=== PATIENT | female | born 1960 | race Caucasian/White ===

== ENCOUNTER 2021-05-15 14:45 | Inpatient (IN) | payer OTHER, SELFPAY ==
[~2021-05-15] VITALS: Ht 167.6 cm; Wt 127.5 kg
[2021-05-15 14:48] VITALS: BP 135/80
--- NOTE | 2021-05-15 16:18 | NUR ---
REFINERY OPERATOR ASSISTANT BEDSIDE COLLECTING BLOODWORK
[2021-05-15 16:25] LABS: BASOPHILS # (AUTO) 0.2 K/uL (0.00-0.22); EOSINOPHILS # (AUTO) 0.1 K/uL (0-0.4); EOSINOPHILS % (AUTO) 0.8 % (0.0-4.0); HEMATOCRIT 22.6 % (36-48); HEMOGLOBIN 7.4 g/dL (12.0-16.0); LYMPHOCYTES # (AUTO) 0.9 K/uL (2.5-16.5); LYMPHOCYTES % (AUTO) 4.8 % (20.5-51.1); MEAN CORPUSCULAR HEMOGLOBIN 30 pg (27-31); MEAN CORPUSCULAR HGB CONC 33 g/dL (33-37); MEAN CORPUSCULAR VOLUME 90.8 fL (80-94); MONOCYTES % (AUTO) 10.7 % (1.7-9.3); NEUTROPHILS # (AUTO) 15.6 K/uL (1.8-7.7); NEUTROPHILS % (AUTO) 82.7 % (42.2-75.2); PLATELET COUNT (AUTO) 477 K/uL (140-450); RED BLOOD CELL COUNT(AUTO) 2.49 MIL/uL (4.20-5.40); RED CELL DISTRIBUTION WIDTH 15.2 % (11.6-13.7); WHITE BLOOD COUNT (AUTO) 18.8 K/uL (4.8-10.8)
[2021-05-15 17:14] LABS: ALBUMIN 1.7 g/dL (3.4-5.0); ANION GAP 14.5 (8-16); CARBON DIOXIDE 20.4 mmol/L (21-32); POTASSIUM 3.9 mmol/L (3.5-5.1); TOTAL BILIRUBIN 0.5 mg/dL (0.0-1.0)
--- NOTE | 2021-05-15 17:42 | NUR ---
Patient appears to be resting comfortably in bed. Vital Signs within normal limits. Respirations even and unlabored.
--- NOTE | 2021-05-15 17:44 | NUR ---
60 YO FEMALE ARRIVED VIA AMBULANCE FROM [facility]. PT WAS BEING TREATED FOR PNEUMONIA BUT C/O SHORTNESS OF BREATH TIMES 3 HOURS. PATIENT HAS NKA. PMH CHF, COPD, AFIB.
[2021-05-15 17:52] LABS: BILIRUBIN,URINE NEGATIVE (NEGATIVE); BLOOD, URINE 3+ (NEGATIVE); COLOR,URINE YELLOW (YELLOW); LEUKOCYTE ESTERASE ,URINE TRACE (NEGATIVE); NITRITE, URINE NEGATIVE (NEGATIVE); UGLUCOSE NEGATIVE (NEGATIVE)
[2021-05-15 18:22] LABS: RBC,URINE TOO NUMEROUS TO COUN /HPF (0-5); WBC,URINE 0-5 /HPF (0-5)
[2021-05-15 18:23] LABS: APPEARANCE,URINE HAZY (CLEAR)
--- NOTE | 2021-05-15 19:01 | NUR ---
RT BEDSIDE COLLECTING ABG BLOOD WORK
--- NOTE | 2021-05-15 19:35 | NUR ---
Pt report given to ESTELLA GARCÍA. Transfer of care at this time.
--- NOTE | 2021-05-15 20:08 | NUR ---
pt states she was really dehydrated and hungry. pt was given some juices and milk (no food available in er fridge).
--- NOTE | 2021-05-15 21:39 | NUR ---
CARLITOS LOPEZ OBTAINED ULTRASOUND GUIDED 20G IV IN R AC.
--- NOTE | 2021-05-15 21:45 | NUR ---
PT LEFT FOR CT
[2021-05-15] MEDS ORDERED: hePARIN / DEXT 5% PREMIX 250 ML IV ONE (23:25)
[2021-05-15] MEDS ORDERED: HEPARIN PER PHARMACY MC ONE (23:25)
[2021-05-15] MEDS ORDERED: NACL 0.9% 1,000 ML IV ONE (23:35)
[2021-05-16 00:26] LABS: PROTHROMBIN TIME 10.5 secs (10.8-13.4)
[2021-05-16] MEDS ORDERED: hePARIN / DEXT 5% PREMIX 250 ML IV ONE (01:10)
--- NOTE | 2021-05-16 02:38 | NUR ---
PT FEELING NAUSEOUS AND WAS GIVEN SOME JUICE. PT REPOSITIONED ONTO RIGHT SIDE IN BED TO RELIVE PRESSURE ON HER BACK.
--- NOTE | 2021-05-16 05:10 | NUR ---
BOTH PT'S RIGHT AC AND LEFT EJ IV ACCESS ARE NO LONGER PATENT. PT'S HEPARIN AND NS HELD DUE TO INFILTRATION. ATTEMPTED CONTACT W/ MD ON DUTY. ORDER PLACED FOR PICC LINE.
--- NOTE | 2021-05-16 06:22 | NUR ---
CHANGED PTS DIAPER/LINENS AND REPOSITIONED PT IN BED.
--- NOTE | 2021-05-16 07:25 | NUR ---
GAVE TRANSFER OF CARE REPORT TO DENY SORIA
[2021-05-16] MEDS ORDERED: hePARIN / DEXT 5% PREMIX 250 ML IV SCH (08:20)
[2021-05-16] MEDS ORDERED: guaiFENesin DM 200/20 MG-10 ML 10 ML UDC PO PRN (08:20)
[2021-05-16] MEDS ORDERED: DOCUSATE SODIUM 100 MG GELCAP PO PRN (08:20)
[2021-05-16] MEDS ORDERED: ACETAMINOPHEN 325 MG TAB PO PRN (08:20)
[2021-05-16] MEDS ORDERED: ONDANSETRON 4 MG/2 ML VIAL IM/IVP PRN (08:20)
[2021-05-16] MEDS ORDERED: POTASSIUM CHLORIDE 10 MEQ TABER PO PRN (08:20)
[2021-05-16] MEDS ORDERED: HYDROcodone/APAP 7.5/325 MG 1 TAB PO PRN (08:20)
[2021-05-16] MEDS: NACL 0.9% 1,000 ML IV SCH (08:20)
[2021-05-16] MEDS ORDERED: HEPARIN PER PHARMACY MC PRN (08:20)
[2021-05-16] MEDS: PANTOPRAZOLE 40 MG TABEC PO SCH (09:15)
[2021-05-16 09:48] LABS: CHOL/HDL RATIO 6.1 (1-4.5); FREE T4 (FREE THYROXINE) 1.34 ng/dL (0.76-1.46); MAGNESIUM 2.1 mg/dL (1.8-2.4); PHOSPHORUS 3.4 mg/dL (2.5-4.9); THYROID STIMULATING HORMONE 2.02 uIU/mL (0.34-3.74)
--- NOTE | 2021-05-16 12:38 | NUR ---
picc line nurse at bedside at this time
--- NOTE | 2021-05-16 16:16 | NUR ---
PATIENT HAS BEEN SCREENED AND CATEGORIZED MODERATE NUTRITION RISK. PATIENT WILL BE SEEN WITHIN 3-5 DAYS OF ADMISSION. LORETTA GUPTA [address]
--- NOTE | 2021-05-16 19:16 | NUR ---
1200ml of orange, clear urine empty from cath. tank care done at this time. pt has soft bowel movement, diapered and cleaned.
--- NOTE | 2021-05-16 19:30 | NUR ---
Recived report from Zena SORIA, Transfer of care. Recived patient alert and oriented x 4. Patient respirations are even and symmetrical, patient noted with tachypnea. Patient on 3L NC and o2sat@ 96%. Patient denies CP or back pain at this time. Patient FC in place. Patient noted with dry cough. Patient Lung sounds diminished a/p bilat. Cap refill <3. Bilateral radial pulses strong and equal bilat 2+, pedal pulses 1+. Patient skin warm, and dry to touch, non-elastic. Patient able to sit up on her own but needs assistance with repositioning. Per Zena SORIA and patient diaper was left clean and dry at 1900. Heparin drip initiated via protocol. Patient states all needs met at this time. Patient remains on cardaic monitor with VSS.
[2021-05-16] MEDS: hePARIN / DEXT 5% PREMIX 250 ML IV SCH (19:53)
--- NOTE | 2021-05-16 21:15 | NUR ---
RECEIVED A CALL FROM ROSALES FROM [employer] ASKING ME TO FAX DOCUMENTS / INFORMATION OF THE PATIENT NEEDED FOR MRI. FAXED ALL DOCUMENTS ASKED.
--- NOTE | 2021-05-16 21:16 | NUR ---
Patient repositioned in bed for comfrt measures. VSS on photographic hand developer. Patient denies CP or back pain at this time. Patient given fluids PO per request.
[2021-05-16] MEDS ORDERED: cefTRIAXone 1,000 MG VIAL ONE (21:51)
--- NOTE | 2021-05-16 22:50 | NUR ---
Patient will be admitted to care of . Admited to TELE. Will go to room 120A. Belongings list completed. Report to Fany SORIA.
--- NOTE | 2021-05-16 23:54 | NUR ---
Patient taken to floor with 1RN and 1 EMT. Patient VSS on Buffing Wheel Presser.
--- NOTE | 2021-05-17 00:48 | NUR ---
0025 RECEIVED PATIENT FROM ER ON 4LNC. SATS WERE 84%. PLACED PT ON NRB MASK AT 15L. WILL CONTINUE TO MONITOR RN AWARE
--- NOTE | 2021-05-17 03:30 | NUR ---
RECEIVED A CALL FROM ZUNILDA CONNELL REPORTING CRITICAL LAB VALUE, PTT 94.1. HELD HEPARIN DRIP FOR 1 HR PER PROTOCOL. Addendum: 05/17/21 at 0402 by Fany Wharton RN RN THEN REDUCE DRIP BY 3 UNITS /KG/HR
[2021-05-17 04:00] VITALS: BP_SYST 121; BP_SYST 128; BP_DIAS 68; BP_DIAS 78
[2021-05-17] MEDS: hePARIN / DEXT 5% PREMIX 250 ML IV SCH ×2 (05:26→18:25)
[2021-05-17 06:07] LABS: T4 (THYROXINE) 7.5 ug/dL (4.5-12.0)
[2021-05-17 06:14] LABS: BASOPHILS % (AUTO) 0.3 % (0.0-2.0); EOSINOPHILS # (AUTO) 0.1 K/uL (0-0.4); HEMATOCRIT 20.5 % (36-48); LYMPHOCYTES % (AUTO) 8.2 % (20.5-51.1); MEAN CORPUSCULAR HEMOGLOBIN 30 pg (27-31); MEAN CORPUSCULAR HGB CONC 34 g/dL (33-37); MEAN CORPUSCULAR VOLUME 90.1 fL (80-94); MONOCYTES # (AUTO) 1.4 K/uL (0.8-1.0); MONOCYTES % (AUTO) 11.5 % (1.7-9.3); NEUTROPHILS # (AUTO) 9.9 K/uL (1.8-7.7); PLATELET COUNT (AUTO) 436 K/uL (140-450); RED BLOOD CELL COUNT(AUTO) 2.27 MIL/uL (4.20-5.40); RED CELL DISTRIBUTION WIDTH 15.5 % (11.6-13.7); WHITE BLOOD COUNT (AUTO) 12.5 K/uL (4.8-10.8)
[2021-05-17 06:49] LABS: ANION GAP 12.3 (8-16); CARBON DIOXIDE 21.3 mmol/L (21-32); POTASSIUM 3.6 mmol/L (3.5-5.1)
--- NOTE | 2021-05-17 07:45 | NUR ---
ENDORSED PATIENT TO AM NURSE FOR CONTINUITY OF CARE. PATIENT IS AWAKE, ALERT, VERBALLY RESPONSIVE. ABLE TO MAKE NEEDS KNOWN. ON ROOM AIR. NO ACUTE DISTRESS.
--- NOTE | 2021-05-17 07:50 | NUR ---
RECEIVED PT FROM NIGHT RN, PT IS AWAKE AND SEATED ON THE BED WITH NRB AT 15L O2, PT HAS A AJAY PICC LINE, DOUBLE LUMEN, WITH HEPARIN DRIP INFUSING AT 1150 UNITS/HR, AND NS AT 60ML/HR, INTACT, NO SIGN OF DISTRESS NOTED AND WILL CONTINUE TOP MONITOR PT.
[2021-05-17 08:00] VITALS: BP 142/96
[2021-05-17 08:09] LABS: HEMOGLOBIN 6.9 g/dL (12.0-16.0)
[2021-05-17] MEDS: NACL 0.9% 1,000 ML IV SCH ×2 (09:04→17:40)
[2021-05-17] MEDS: PANTOPRAZOLE 40 MG TABEC PO SCH (09:08)
--- NOTE | 2021-05-17 09:08 | NUR ---
PT WAS GIVEN THE SCHEDULED AM MEDICATION NOW.
[2021-05-17 12:00] VITALS: BP 145/67
--- NOTE | 2021-05-17 15:30 | NUR ---
PT WAS RE[POSITIONED AND CLEANED NOW.
[2021-05-17 16:00] VITALS: BP 128/72
--- NOTE | 2021-05-17 17:53 | NUR ---
PT WAS GIVEN TYLENOL FOR TEMP OF 100.4
--- NOTE | 2021-05-17 18:25 | NUR ---
PT'S HEPARIN DRIP WAS ADJUSTED TO 1500UNITS/HR OR 15ML/HR, FOR PTT OF 30.5 AND PER PHARMACY PROTOCOL, NEXT PTT DRAW IS 0026H.
--- NOTE | 2021-05-17 19:34 | NUR ---
ENDORSED PT TO NIGHT RN FOR CONTINUITY OF CARE.
[2021-05-17 20:00] VITALS: BP 138/55
--- NOTE | 2021-05-17 20:49 | NUR ---
SCHEDULED ROCEPHIN ADMINISTERED ORDERED.
--- NOTE | 2021-05-17 22:35 | NUR ---
PATIENT AWAKE RESTING COMFORTABLY IN BED. NO SOB NOTED. ON ROOM AIR. SAFETY MEASURES IN PLACE. CALL LIGHT WITHIN REACH. NO COMPLAINTS OF PAIN AT THIS TIME. WILL CONTINUE TO MONITOR PT.
[2021-05-18] VITALS: BP 136/68
[2021-05-18] MEDS: hePARIN / DEXT 5% PREMIX 250 ML IV SCH ×2 (02:31→19:40)
[2021-05-18 04:00] VITALS: BP 122/64
[2021-05-18 07:02] LABS: BASOPHILS # (AUTO) 0.1 K/uL (0.00-0.22); BASOPHILS % (AUTO) 0.6 % (0.0-2.0); EOSINOPHILS # (AUTO) 0.2 K/uL (0-0.4); EOSINOPHILS % (AUTO) 1.6 % (0.0-4.0); LYMPHOCYTES # (AUTO) 1.1 K/uL (2.5-16.5); LYMPHOCYTES % (AUTO) 9.3 % (20.5-51.1); MEAN CORPUSCULAR HEMOGLOBIN 29 pg (27-31); MEAN CORPUSCULAR HGB CONC 32 g/dL (33-37); MEAN CORPUSCULAR VOLUME 88.6 fL (80-94); MONOCYTES # (AUTO) 1.2 K/uL (0.8-1.0); MONOCYTES % (AUTO) 10.1 % (1.7-9.3); NEUTROPHILS % (AUTO) 78.4 % (42.2-75.2); PLATELET COUNT (AUTO) 432 K/uL (140-450); RED CELL DISTRIBUTION WIDTH 15.2 % (11.6-13.7); WHITE BLOOD COUNT (AUTO) 11.5 K/uL (4.8-10.8)
[2021-05-18 07:12] LABS: ANION GAP 11.6 (8-16); CARBON DIOXIDE 23.2 mmol/L (21-32); CREATININE 0.9 mg/dL (0.6-1.3); POTASSIUM 3.8 mmol/L (3.5-5.1)
[2021-05-18 07:54] LABS: HEMATOCRIT 20.3 % (36-48); HEMOGLOBIN 6.6 g/dL (12.0-16.0)
[2021-05-18 08:00] VITALS: BP 128/68
[2021-05-18] MEDS: PANTOPRAZOLE 40 MG TABEC PO SCH (09:29)
[2021-05-18] MEDS: NACL 0.9% 1,000 ML IV SCH (09:30)
[2021-05-18 12:00] VITALS: BP 113/62
--- NOTE | 2021-05-18 12:02 | NUR ---
Received patient in bed, on heparin drip, PTT drawn and increased to 1900 and 3500 IV bolus given Next PTT at 1430. Will continue to monitor.
[2021-05-18 16:00] VITALS: BP 124/61
[2021-05-18 20:00] VITALS: BP 128/70
[2021-05-19] VITALS: BP 138/50
--- NOTE | 2021-05-19 00:47 | NUR ---
PATIENT AWAKE ALERT RESTING IN BED HAS 02 ON 2 LITERS N/C SAT 98%. LUNGS DIMINISH HAS PRODUCTIVE COUGH. HAS N.S INFUSING AT 60 HOUR.ALSO HAS HEPARIN INFUSING AT 2250 UNITS INFUSING AT 23ML/HOUR. PTT DRAWN AT 2235. GOT RESULTS AT 0025 PTT 48.5 NO CHANGE NEXT PTT DRAW AT 0625. PATIENT IS OBESE. HAS F/C DRAINING A LOT OF YELLOW URINE. NO DISTRESS NOTED.
--- NOTE | 2021-05-19 01:01 | NUR ---
NEXT PTT WILL BE AT 0500 NOT 0625.
[2021-05-19 04:00] VITALS: BP 130/55
--- NOTE | 2021-05-19 05:51 | NUR ---
PTT AT 0540 55 NO CHANGE WITH HEPARIN DRIP. NEXT PTT NOON.
[2021-05-19] MEDS: NACL 0.9% 1,000 ML IV SCH ×2 (06:00→19:40)
[2021-05-19 06:15] LABS: CARBON DIOXIDE 24.1 mmol/L (21-32); CREATININE 0.9 mg/dL (0.6-1.3); POTASSIUM 4.1 mmol/L (3.5-5.1)
[2021-05-19 06:24] LABS: BASOPHILS # (AUTO) 0.1 K/uL (0.00-0.22); BASOPHILS % (AUTO) 0.7 % (0.0-2.0); EOSINOPHILS # (AUTO) 0.2 K/uL (0-0.4); EOSINOPHILS % (AUTO) 1.5 % (0.0-4.0); HEMATOCRIT 21.7 % (36-48); HEMOGLOBIN 7.1 g/dL (12.0-16.0); LYMPHOCYTES % (AUTO) 8.5 % (20.5-51.1); MEAN CORPUSCULAR HEMOGLOBIN 29 pg (27-31); MEAN CORPUSCULAR HGB CONC 33 g/dL (33-37); MEAN CORPUSCULAR VOLUME 88.9 fL (80-94); MONOCYTES # (AUTO) 1.2 K/uL (0.8-1.0); MONOCYTES % (AUTO) 10.1 % (1.7-9.3); NEUTROPHILS % (AUTO) 79.2 % (42.2-75.2); PLATELET COUNT (AUTO) 364 K/uL (140-450); RED BLOOD CELL COUNT(AUTO) 2.44 MIL/uL (4.20-5.40); RED CELL DISTRIBUTION WIDTH 15.6 % (11.6-13.7); WHITE BLOOD COUNT (AUTO) 11.4 K/uL (4.8-10.8)
[2021-05-19 08:00] VITALS: BP 159/66
--- NOTE | 2021-05-19 08:13 | NUR ---
RECEIVED PT CARE AND REPORT FROM [facility] NURSE. PT RESTING IN BED WITH EYES CLOSED, SUPINE. NO VISIBLE S/S OF DISTRESS, DISCOMFORT, PAIN OR SOB. CALL LIGHT WITHIN REACH. RECEIVING HEPARIN DRIP AT 22.5ML/HR. 4L O2 VIA NC. ALL NEEDS HAVE BEEN MET AT THIS TIME.
[2021-05-19] MEDS: hePARIN / DEXT 5% PREMIX 250 ML IV SCH (08:40)
[2021-05-19] MEDS: PANTOPRAZOLE 40 MG TABEC PO SCH (09:06)
--- NOTE | 2021-05-19 11:58 | NUR ---
RECEIVED CALL FROM LAB TO REPORT PTT LEVEL OF 54.5. NO CHANGE/ADJUSTMENT NEEDED FOR HEPARIN DRIP SETTINGS AT THIS TIME ACCORDING TO TITRATION SHEET.
[2021-05-19 12:00] VITALS: BP 160/70
--- NOTE | 2021-05-19 12:53 | NUR ---
TEXTED DR. GODDARD TO REPORT HIGH BP. RECEIVED ORDER FOR METOPROLOL 25MG BID
[2021-05-19] MEDS ORDERED: lisinopriL 20 MG TAB PO SCH (13:47)
[2021-05-19 16:16] VITALS: BP 138/66
--- NOTE | 2021-05-19 18:52 | NUR ---
PT RESTING IN BED WITH EYES CLOSED. NO VISIBLE S/S OF DISTRESS, DISCOMFORT, PAIN OR SOB. CALL LIGHT WITHIN [facility]. ALL NEEDS HAVE BEEN MET AT THIS TIME.
[2021-05-19] MEDS: RIVAROXABAN 15 MG TAB PO SCH (21:30)
--- NOTE | 2021-05-19 21:30 | NUR ---
ADMINISTERED MEDICATIONS SCHEDULED DUE.
--- NOTE | 2021-05-19 22:44 | NUR ---
LOWERED FIO2 TO 4LNC WITH HUMIDIFICATION
[2021-05-20] VITALS: BP 132/90
--- NOTE | 2021-05-20 02:21 | NUR ---
PATIENT SLEEPING. NO S/S OF RESPIRATORY DISTRESS. BREATHING EVEN UNLABORED. SAFETY MEASURES IN PLACE. CALL LIGHT WITHIN REACH.
[2021-05-20 06:46] LABS: ANION GAP 10.2 (8-16); CREATININE 0.8 mg/dL (0.6-1.3); POTASSIUM 4.2 mmol/L (3.5-5.1)
[2021-05-20 07:22] LABS: BASOPHILS % (AUTO) 0.4 % (0.0-2.0); EOSINOPHILS # (AUTO) 0.2 K/uL (0-0.4); EOSINOPHILS % (AUTO) 1.7 % (0.0-4.0); LYMPHOCYTES # (AUTO) 0.7 K/uL (2.5-16.5); LYMPHOCYTES % (AUTO) 6.9 % (20.5-51.1); MEAN CORPUSCULAR HEMOGLOBIN 30 pg (27-31); MEAN CORPUSCULAR HGB CONC 34 g/dL (33-37); MONOCYTES % (AUTO) 10.1 % (1.7-9.3); NEUTROPHILS # (AUTO) 7.9 K/uL (1.8-7.7); NEUTROPHILS % (AUTO) 80.9 % (42.2-75.2); PLATELET COUNT (AUTO) 362 K/uL (140-450); RED BLOOD CELL COUNT(AUTO) 2.15 MIL/uL (4.20-5.40); RED CELL DISTRIBUTION WIDTH 15.8 % (11.6-13.7); WHITE BLOOD COUNT (AUTO) 9.8 K/uL (4.8-10.8)
--- NOTE | 2021-05-20 07:50 | NUR ---
ENDORSED TO AM NURSE FOR CONTINUITY OF CARE. PATIENT STABLE.
--- NOTE | 2021-05-20 07:51 | NUR ---
RECEIVED REPORT FROM SCREEN VENT BINDER NURSE FOR CONTINUITY OF CARE. PT IN BED SLEEPING AT THIS TIME. RESPIRATIONS ARE EVEN AND UNLABORED. NO SIGNS OF DISTRESS NOTED. NO COMPLAINTS OF PAIN OR DISCOMFORT. CALL LIGHT WITHIN REACH. ALL SAFETY MEASURES IN PLACE. WILL CONTINUE TO MONITOR.
[2021-05-20 08:00] VITALS: BP 123/64
[2021-05-20 08:56] LABS: HEMATOCRIT 19.2 % (36-48); HEMOGLOBIN 6.4 g/dL (12.0-16.0)
--- NOTE | 2021-05-20 09:09 | NUR ---
LAB CALLED, ANOTHER NURSE, TO GIVE CRITICAL LAB VALUE OF HGB 6.4 AND HCT 19.2. INFORMED AT THIS TIME THERE IS NO BLOOD IN BLOOD BANK. MADE AWARE. AWAITING RESPONSE.
[2021-05-20] MEDS: PANTOPRAZOLE 40 MG TABEC PO SCH (09:55)
[2021-05-20] MEDS: RIVAROXABAN 15 MG TAB PO SCH (09:56)
--- NOTE | 2021-05-20 10:06 | NUR ---
PT COMPLAINING OF PAIN TO HER BACK. RATING PAIN AT 6/10. MEDICATED PT. WILL CONTINUE TO MONITOR AND WILL REASSESS.
[2021-05-20] MEDS: SODIUM FERRIC GLUCONATE 125 MG in NACL 0.9% 100 ML IV SCH (11:01)
[2021-05-20] MEDS ORDERED: FERR-252 PO (11:03)
[2021-05-20] MEDS ORDERED: ASCO500T95 PO (11:03)
[2021-05-20] MEDS ORDERED: RIVA15TA1 PO (11:03)
--- NOTE | 2021-05-20 11:26 | NUR ---
05/20/21 RD INITIAL ASSESSMENT COMPLETED PLEASE REFER TO NUTRITION ASSESSMENT UNDER CARE ACTIVITY FOR ESTIMATED NUTRITIONAL NEEDS. 1. CONTINUE CARDIAC DIET TOLERATED 2. RD TO FOLLOW-UP 7 DAYS, LOW RISK (DOWNGRADED D/T PT STABLE AND EATING WELL) LORETTA GUPTA RD
[2021-05-20] MEDS: FUROSEMIDE 20 MG TAB PO SCH ×2 (12:00→16:00)
[2021-05-20] MEDS: ACETAMINOPHEN 325 MG TAB PO SCH ×3 (12:00→20:00)
[2021-05-20] MEDS: NACL 0.9% 1,000 ML IV SCH (12:32)
[2021-05-20 13:02] LABS: PROTHROMBIN TIME 12.1 secs (10.8-13.4)
--- NOTE | 2021-05-20 13:56 | NUR ---
RECEIVED CALL FROM BLOOD BANK, STATED THAT BLOOD FOR ORDERED TRANSFUSION WOULD NOT BE AVAILABLE UNTIL WEDNESDAY. DR ESCOBAR AWARE. WILL CONTINUE TO MONITOR. Addendum: 05/20/21 at 1515 by Bria Hopkins LVN SCHEDULED MEDICATIONS BENADRYL, ACETAMINOPHEN, AND LASIX TO BE GIVEN WITH/BEFORE TRANSFUSION, NOT ADMINISTERED. TRANSFUSION WILL NOT TAKE PLACE.
--- NOTE | 2021-05-20 14:22 | NUR ---
DC PLANNING: DC ORDER RECEIVED, PATIENT WITH HBG OF 6.4, 1 UNIT PRBC'S ORDERED BUT NOT AVAILABLE. CLINICAL PACKET FAXED TO THE PATIENTS ORIGINATING FACILITY [facility], ASSIGNED ROOM 107B. PATIENT DC ON HOLD PER PATTI GAMBINO FROM [facility] NOTIFIED. CM WILL FOLLOW. Addendum: 05/23/21 at 1303 by Michelle Vega CM BEN spoke with Chris at [facility]. [facility] provided update. When pt is ready for DC call Kika at [phone] for bed assignment. Addendum: 05/23/21 at 1757 by Michelle Vega Per Missy kimble [place] ([phone]) transportation can be arranged with [facility] ([phone]) under global auth: [id number].
[2021-05-20 16:00] VITALS: BP 124/66
--- NOTE | 2021-05-20 19:10 | NUR ---
PT IN BED RESTING AT THIS TIME. RESPIRATIONS ARE EVEN AND UNLABORED. NO SIGNS OF DISTRESS NOTED. NO COMPLAINTS OF PAIN OR DISCOMFORT NOTED. PT IS STABLE. WILL ENDORSE TO CANAL TENDER NURSE.
--- NOTE | 2021-05-20 20:00 | NUR ---
TYLENOL AND BENADRYL NOT GIVEN, PATIENT IS NOT ON BLOOD TRANSFUSION.
--- NOTE | 2021-05-20 21:06 | NUR ---
ROCEPHIN IVPB ADMINISTERED ORDERED.
--- NOTE | 2021-05-20 22:05 | NUR ---
PATIENT AWAKE ALERT VERBALLY RESPONSIVE. NO ACUTE DISTRESS NOTED. ON 4L NC TOLERATING WELL. LOVELL CATHETER DRAINING. SAFETY MEASURES IN PLACE. CALL LIGHT WITHIN REACH. ALL NEEDS MET.
[2021-05-21] VITALS: BP 121/60
[2021-05-21] MEDS: NACL 0.9% 1,000 ML IV SCH ×2 (05:00→21:40)
[2021-05-21 07:00] LABS: ANION GAP 11.5 (8-16); CARBON DIOXIDE 24.8 mmol/L (21-32); CREATININE 0.8 mg/dL (0.6-1.3); POTASSIUM 4.3 mmol/L (3.5-5.1)
[2021-05-21 07:11] LABS: BASOPHILS % (AUTO) 0.4 % (0.0-2.0); EOSINOPHILS # (AUTO) 0.2 K/uL (0-0.4); EOSINOPHILS % (AUTO) 1.5 % (0.0-4.0); LYMPHOCYTES # (AUTO) 0.7 K/uL (2.5-16.5); LYMPHOCYTES % (AUTO) 6.1 % (20.5-51.1); MEAN CORPUSCULAR HEMOGLOBIN 29 pg (27-31); MEAN CORPUSCULAR HGB CONC 33 g/dL (33-37); MEAN CORPUSCULAR VOLUME 88.7 fL (80-94); MONOCYTES # (AUTO) 0.9 K/uL (0.8-1.0); MONOCYTES % (AUTO) 8.5 % (1.7-9.3); NEUTROPHILS # (AUTO) 9.3 K/uL (1.8-7.7); NEUTROPHILS % (AUTO) 83.5 % (42.2-75.2); PLATELET COUNT (AUTO) 333 K/uL (140-450); RED BLOOD CELL COUNT(AUTO) 2.19 MIL/uL (4.20-5.40); RED CELL DISTRIBUTION WIDTH 15.5 % (11.6-13.7); WHITE BLOOD COUNT (AUTO) 11.1 K/uL (4.8-10.8)
[2021-05-21 07:48] LABS: HEMOGLOBIN 6.4 g/dL (12.0-16.0)
[2021-05-21 07:49] LABS: HEMATOCRIT 19.4 % (36-48)
--- NOTE | 2021-05-21 07:55 | NUR ---
ENDORSED PATIENT TO AM NURSE FOR CONTINUITY OF CARE. NO ACUTE DISTRESS.
[2021-05-21 08:00] VITALS: BP 148/67
[2021-05-21] MEDS: PANTOPRAZOLE 40 MG TABEC PO SCH (09:48)
--- NOTE | 2021-05-21 10:00 | NUR ---
SCHEDULED MEDICATIONS DUE GIVEN. WILL CONTINUE TO MONITOR.
[2021-05-21] MEDS: SODIUM FERRIC GLUCONATE 125 MG in NACL 0.9% 100 ML IV SCH (10:54)
--- NOTE | 2021-05-21 15:01 | NUR ---
ASSISTED GAS JOCKEY IN CLEANING AND REPOSITIONING PATIENT. PATIENT TOLERATED WELL. WILL CONTINUE TO MONITOR.
[2021-05-21 16:00] VITALS: BP 123/61
--- NOTE | 2021-05-21 19:30 | NUR ---
RECEIVED BEDSIDE REPORT FROM DAY SHIFT RN FOR CONTINUITY OF CARE. PT IS AWAKE WATCHING TELEVISION. PT IS ON 4L NC. PT IS NOT IN ANY DISTRESS. FC IN PLACE. IVF RUNNING MD ORDER. CALL LIGHT WITHIN REACH. ALL SAFETY MEASURES TAKEN. WILL CONTINUE TO MONITOR THE PT.
[2021-05-21 20:00] VITALS: BP 100/51
--- NOTE | 2021-05-21 22:10 | NUR ---
PT IS AWAKE. PT IS NOT IN ANY DISTRESS AND HAS NO COMPLAINS AT THIS TIME. CALL LIGHT WITHIN REACH. ALL SAFETY MEASURES TAKEN. WILL CONTINUE TO OBSERVE THE PT.
--- NOTE | 2021-05-21 23:54 | NUR ---
PT HEPARIN DRIP WAS STOPPED ON 05/19. XARELTO WAS SUPPOSE TO BE ORDER, BUT THERE IS NO ORDER FOR IT. MESSAGED DR. CARPIO. DR. CARPIO SAID THERE IS NO SIGNIFICANCE OF PE, SHE HAS HGB 6.4. JUST DO SCDS. NO ANTICOAGS.
[2021-05-22] MEDS: ZOLPIDEM 5 MG TAB PO PRN (00:25)
--- NOTE | 2021-05-22 00:29 | NUR ---
PT WANTED SOME MEDICINE FOR SLEEP. AMBIEN WAS GIVEN TO HELP WITH SLEEP. NO ADVERSE REACTION NOTED. WILL CONTINUE TO OBSERVE THE PT.
[2021-05-22] MEDS: NACL 0.9% 1,000 ML IV SCH (03:49)
[2021-05-22 04:00] VITALS: BP 106/56
--- NOTE | 2021-05-22 04:35 | NUR ---
PT IS SLEEPING COMFORTABLY IN BED. PT IS NOT IN ANY DISTRESS. BREATHING RHYTHMIC AND SYMMETRICAL. IVF RUNNING MD ORDER. CALL LIGHT WITHIN REACH. ALL SAFETY MEASURES TAKEN. WILL CONTINUE TO MONITOR THE PATIENT.
[2021-05-22 06:37] LABS: BASOPHILS % (AUTO) 0.5 % (0.0-2.0); EOSINOPHILS # (AUTO) 0.2 K/uL (0-0.4); EOSINOPHILS % (AUTO) 2.6 % (0.0-4.0); LYMPHOCYTES # (AUTO) 0.7 K/uL (2.5-16.5); LYMPHOCYTES % (AUTO) 8.1 % (20.5-51.1); MEAN CORPUSCULAR HEMOGLOBIN 29 pg (27-31); MEAN CORPUSCULAR HGB CONC 33 g/dL (33-37); MEAN CORPUSCULAR VOLUME 89.1 fL (80-94); MONOCYTES # (AUTO) 0.9 K/uL (0.8-1.0); NEUTROPHILS # (AUTO) 6.8 K/uL (1.8-7.7); NEUTROPHILS % (AUTO) 78.8 % (42.2-75.2); PLATELET COUNT (AUTO) 306 K/uL (140-450); RED BLOOD CELL COUNT(AUTO) 2.25 MIL/uL (4.20-5.40); RED CELL DISTRIBUTION WIDTH 15.9 % (11.6-13.7); WHITE BLOOD COUNT (AUTO) 8.6 K/uL (4.8-10.8)
[2021-05-22 06:53] LABS: HEMOGLOBIN 6.5 g/dL (12.0-16.0)
--- NOTE | 2021-05-22 07:22 | NUR ---
RECEIVED REPORT FROM BURRING WHEEL OPERATOR NURSE FOR CONTINUITY OF CARE.
--- NOTE | 2021-05-22 07:22 | NUR ---
ENDORSED PT TO DAY SHIFT RN FOR CONTINUITY OF CARE. PT IS STABLE.
--- NOTE | 2021-05-22 08:00 | NUR ---
Patient's Plan of Care was discussed and reviewed with CHIPPER MACHINE OPERATOR: ZANE CHIPPER MACHINE OPERATOR WILL CONTINUE TO MONITOR
[2021-05-22 08:06] LABS: ANION GAP 11.8 (8-16); CARBON DIOXIDE 25.5 mmol/L (21-32); CREATININE 0.8 mg/dL (0.6-1.3); POTASSIUM 4.3 mmol/L (3.5-5.1)
[2021-05-22] MEDS: PANTOPRAZOLE 40 MG TABEC PO SCH (08:12)
--- NOTE | 2021-05-22 08:39 | NUR ---
GIVEN ORAL MEDICATION TOLERATED WELL. PT VERBALLY RESPONSIVE NOT ON ANY DISTRESS OR DISCOMFORT. ALL SAFETY MEASURE IN PLACE.
--- NOTE | 2021-05-22 10:30 | NUR ---
CALLED PHARMACY DUE IV NOT AVAILABLE AND THEY SAID THEY WILL PREPARE IT.
[2021-05-22] MEDS: SODIUM FERRIC GLUCONATE 125 MG in NACL 0.9% 100 ML IV SCH (11:00)
--- NOTE | 2021-05-22 12:23 | NUR ---
ESTLELA ROMERO THE IV MEDICATION FOR PT. TOLERATED WELL.
--- NOTE | 2021-05-22 14:24 | NUR ---
PT ON BED RESTING IV INFUSING AT 60 CC/HOUR TOLERATED WELL. ALL SAFETY MEASURE IN PLACE.
[2021-05-22 16:00] VITALS: BP 125/57
--- NOTE | 2021-05-22 16:30 | NUR ---
PT ON BED ON O2 AT 2L/MIN NO SHORTNESS OF BREATH NOTED. O2 SATURATION AT 99%. ALL SAFETY MEASURE IN PLACE.
--- NOTE | 2021-05-22 18:53 | NUR ---
PT ON BED WATCHING TV NO WEAKNESS NOTED. ATE DINNER. NO COMPLAIN OF PAIN
--- NOTE | 2021-05-22 19:23 | NUR ---
ENDORSE TO HEMATOLOGY TECHNICIAN NURSE FOR CONTINUITY OF CARE.
--- NOTE | 2021-05-22 19:27 | NUR ---
RECEIVED PATIENT REPORT FROM AM SHIFT NURSE FOR CONTINUITY OF CARE. PATIENT IN BED AWAKE, ALERT AND VERBALLY RESPONSIVE. ABLE TO MAKE NEEDS KNOWN. NOT IN ANY DISTRESS. DENIES ANY PAIN AT THIS TIME. F/C IN PLACE. IVF RUNNING MD ORDER. ALL SAFETY MEASURES IN PLACE. CALL LIGHT WITHIN REACH. WILL CONTINUE WITH CURRENT PLAN OF CARE.
--- NOTE | 2021-05-22 21:30 | NUR ---
CHECKED ON PATIENT. AWAKE AND WATCHING TV. DENIES ANY PAIN AT THIS TIME. ALL SAFETY MEASURES IN PLACE. CALL LIGHT WITHIN REACH. WILL CONTINUE TO MONITOR.
--- NOTE | 2021-05-22 23:55 | NUR ---
ROUNDED ON PATIENT. PATIENT IS WATCHING TV. ASKED IF SHE NEED ANYTHING, SHE SAID, SHE'S FINE. PATIENT NOT IN DISTRESS. NO SOB NOTED. DENIES ANY PAIN AT THIS TIME. ALL SAFETY MEASURES IN PLACE. CALL LIGHT WITHIN REACH. WILL CONTINUE TO MONITOR.
--- NOTE | 2021-05-23 02:45 | NUR ---
PATIENT ASLEEP. VISIBLE CHEST RISING AND FALLING WITH NO SOB NOTED. CALL LIGHT WITHIN REACH. WILL CONTINUE TO MONITOR.
[2021-05-23] MEDS: NACL 0.9% 1,000 ML IV SCH ×2 (03:01→22:08)
--- NOTE | 2021-05-23 03:01 | NUR ---
ROUNDED PATIENT. PATIENT ASLEEP WITH VISIBLE CHEST RISING AND FALLING. NO SOB NOTED. CALL LIGHT WITHIN REACH. WILL CONTINUE TO MONITOR.
[2021-05-23 04:00] VITALS: BP 141/76
--- NOTE | 2021-05-23 05:38 | NUR ---
PATIENT ASLEEP. BREATHING EVEN AND UNLABORED WITH NO SOB NOTED. CALL LIGHT WITHIN REACH. WILL CONTINUE TO MONITOR.
--- NOTE | 2021-05-23 07:09 | NUR ---
ENDORSED PATIENT REPORT TO AM SHIFT NURSE FOR CONTINUITY OF CARE. PATIENT IS STABLE.
--- NOTE | 2021-05-23 07:10 | NUR ---
RECEIVED ENDORSEMENT FROM CONCRETE SAW OPERATOR NURSE FOR CONTINUITY OF CARE.
[2021-05-23 07:33] LABS: BASOPHILS % (AUTO) 0.3 % (0.0-2.0); EOSINOPHILS # (AUTO) 0.3 K/uL (0-0.4); EOSINOPHILS % (AUTO) 4.4 % (0.0-4.0); LYMPHOCYTES # (AUTO) 0.7 K/uL (2.5-16.5); LYMPHOCYTES % (AUTO) 10.5 % (20.5-51.1); MEAN CORPUSCULAR HEMOGLOBIN 29 pg (27-31); MEAN CORPUSCULAR HGB CONC 32 g/dL (33-37); MEAN CORPUSCULAR VOLUME 89.6 fL (80-94); MONOCYTES # (AUTO) 0.9 K/uL (0.8-1.0); MONOCYTES % (AUTO) 12.3 % (1.7-9.3); NEUTROPHILS # (AUTO) 5.1 K/uL (1.8-7.7); NEUTROPHILS % (AUTO) 72.5 % (42.2-75.2); PLATELET COUNT (AUTO) 283 K/uL (140-450); RED BLOOD CELL COUNT(AUTO) 2.24 MIL/uL (4.20-5.40); RED CELL DISTRIBUTION WIDTH 15.8 % (11.6-13.7)
[2021-05-23 07:39] LABS: ANION GAP 12.6 (8-16); CARBON DIOXIDE 25.5 mmol/L (21-32); CREATININE 0.8 mg/dL (0.6-1.3); POTASSIUM 4.1 mmol/L (3.5-5.1)
[2021-05-23 07:46] LABS: HEMOGLOBIN 6.5 g/dL (12.0-16.0)
--- NOTE | 2021-05-23 07:50 | NUR ---
RECEIVED CRITICAL LAB RESULT OF HGB 6.[address] CARPIO WAITING FOR RESPONSE.
--- NOTE | 2021-05-23 08:20 | NUR ---
DR. CARPIO ORDER FOR UNIT OF BLOOD BUT INFORM HIM THAT NO AVAILABLE YET. WILL FOLLOW UP AGAIN AT BLOOD BANK.
--- NOTE | 2021-05-23 08:25 | NUR ---
CALLED LAB INQUIRING IF THEY HAVE BLOOD AVAILABLE ALREADY, BUT THEY SAID WILL CHECK ON IT AND WILL INFORM ME IF THEY HAVE ALREADY.
[2021-05-23] MEDS: PANTOPRAZOLE 40 MG TABEC PO SCH (08:35)
--- NOTE | 2021-05-23 08:37 | NUR ---
PT EATING HER BREAKFAST. GAVE HER PROTONIX TOLERATED WELL. ALL SAFETY MEASURE IN PLACE.
--- NOTE | 2021-05-23 10:40 | NUR ---
ON BED RESTING ENCOURAGE TO ELEVATED RIGHT FOOT ON PILLOW NOTED WITH EDEMA +2. DENIES PAIN OR DISCOMFORT , NO COMPLAIN OF WEAKNESS. ALL SAFETY MEASURE IN PLACE.
[2021-05-23] MEDS: SODIUM FERRIC GLUCONATE 125 MG in NACL 0.9% 100 ML IV SCH (11:00)
[2021-05-23 12:00] VITALS: BP 144/62
--- NOTE | 2021-05-23 12:41 | NUR ---
PT ON BED FERRIC GLUCONATE IV DONE. EATING HER LUNCH ON STABLE CONDITION. ALL SAFETY MEASURE IN PLACE.
--- NOTE | 2021-05-23 14:34 | NUR ---
DR. CARPIO AT BED SIDE.
--- NOTE | 2021-05-23 16:30 | NUR ---
PT ON BED RESTING NO DISTRESS NOTED. ASSISTED RESIDENT WHEN CHANGING PT. TOLERATED WELL.
--- NOTE | 2021-05-23 18:40 | NUR ---
PT ON BED WATCHING TV NO DISTRESS NO0TED NO WEAKNESS OR DISCOMFORT.
--- NOTE | 2021-05-23 19:25 | NUR ---
GAVE ENDORSEMENT TO HYDRAULIC PLUMBER NURSE FOR CONTINUITY OF CARE.
[2021-05-23] MEDS: ZOLPIDEM 5 MG TAB PO PRN (22:04)
[2021-05-23 22:09] VITALS: BP 139/69
[2021-05-24 03:31] VITALS: BP 123/70
--- NOTE | 2021-05-24 07:25 | NUR ---
RECEIVED REPORT FROM SERVICE CENTER SPECIALIST NURSE FOR CONTINUITY OF CARE. PT IS SLEEPING WITH BREATHING EVEN AND UNLABORED.NO SIGNS OF DISTRESS NOTED. IV IS PATENT AND INTACT. PT IS ON 2.5L NC. PT IS STABLE.
[2021-05-24 08:06] LABS: BASOPHILS % (AUTO) 0.5 % (0.0-2.0); EOSINOPHILS # (AUTO) 0.4 K/uL (0-0.4); EOSINOPHILS % (AUTO) 5.6 % (0.0-4.0); HEMATOCRIT 23.8 % (36-48); HEMOGLOBIN 7.8 g/dL (12.0-16.0); LYMPHOCYTES # (AUTO) 0.8 K/uL (2.5-16.5); LYMPHOCYTES % (AUTO) 10.9 % (20.5-51.1); MEAN CORPUSCULAR HEMOGLOBIN 29 pg (27-31); MEAN CORPUSCULAR HGB CONC 33 g/dL (33-37); MEAN CORPUSCULAR VOLUME 89.3 fL (80-94); MONOCYTES # (AUTO) 0.9 K/uL (0.8-1.0); MONOCYTES % (AUTO) 12.5 % (1.7-9.3); NEUTROPHILS # (AUTO) 4.9 K/uL (1.8-7.7); NEUTROPHILS % (AUTO) 70.5 % (42.2-75.2); PLATELET COUNT (AUTO) 298 K/uL (140-450); RED BLOOD CELL COUNT(AUTO) 2.67 MIL/uL (4.20-5.40); RED CELL DISTRIBUTION WIDTH 16.3 % (11.6-13.7); WHITE BLOOD COUNT (AUTO) 6.9 K/uL (4.8-10.8)
[2021-05-24] MEDS ORDERED: ACET-1182 PO (09:19)
[2021-05-24] MEDS ORDERED: PANT40EC56 PO (09:19)
[2021-05-24] MEDS ORDERED: amLODIPine 5 MG TAB PO SCH (09:40)
[2021-05-24] MEDS: PANTOPRAZOLE 40 MG TABEC PO SCH (10:02)
--- NOTE | 2021-05-24 10:46 | NUR ---
TALKED TO OLYA, IN [facility] , OLYA WILL CALL ME BACK FOR THE ROOM
[2021-05-24] MEDS: SODIUM FERRIC GLUCONATE 125 MG in NACL 0.9% 100 ML IV SCH (11:19)
--- NOTE | 2021-05-24 11:57 | NUR ---
PT IS RESTING WITH BREATHING EVEN AND UNLABORED. NO SIGNS OF DISTRESS NOTED. IV IS PATENT AND INTACT. PT IS ON 2.5L NC. PT IS STABLE.
[2021-05-24 13:45] VITALS: BP 123/70
--- NOTE | 2021-05-24 14:00 | NUR ---
gave report to nurse at [facility]F BEING TRANSFERRED TO.
--- NOTE | 2021-05-24 14:45 | NUR ---
PT IS D/C TO [facility] FOR CONTINUITY OF CARE. PICC LINE WAS PULLED OUT AND INTACT. PT TOLERATED WELL. PT ON 2L NC PICKED UP BY [facility]. PT IS STABLE.
== END 2021-05-24 14:45 | DRG 720 ==
LOC: MED 14:45 → MTU 23:41
PROVIDERS: ADMIT Family Medicine; ATTEND Family Medicine
DX: A41.9 Sepsis, unspecified organism (principal); I26.99 Other pulmonary embolism without acute cor pulmonale; J96.21 Acute and chronic respiratory failure with hypoxia; J69.0 Pneumonitis due to inhalation of food and vomit; G93.41 Metabolic encephalopathy; E43 Unspecified severe protein-calorie malnutrition; I50.33 Acute on chronic diastolic (congestive) heart failure; D63.8 Anemia in other chronic diseases classified elsewhere; E87.1 Hypo-osmolality and hyponatremia; E78.5 Hyperlipidemia, unspecified; I48.0 Paroxysmal atrial fibrillation; J44.0 Chronic obstructive pulmonary disease with (acute) lower respiratory infection; N39.0 Urinary tract infection, site not specified; Z20.822 Contact with and (suspected) exposure to COVID-19; M35.00 Sjogren syndrome, unspecified; E66.2 Morbid (severe) obesity with alveolar hypoventilation; I27.20 Pulmonary hypertension, unspecified; I08.3 Combined rheumatic disorders of mitral, aortic and tricuspid valves; Z68.42 Body mass index [BMI] 45.0-49.9, adult; Z71.3 Dietary counseling and surveillance
CPT/HCPCS: 36415; 71045; 71275; 80048; 80053; 81001; 82150; 83036; 83605; 83690; 83735; 83880; 84100; 84436; 84439; 84443; 84479; 84484; 85025; 85610; 85730; 86886; 86900; 86901; 86920; 87040; 87086; 93005; 96372; 99291; J0696; J1644; J2916; J7060; Q0092; Q9967